=== PATIENT | female | born 1960 | race Caucasian/White ===

== ENCOUNTER → 2016-09-15 | Outpatient (CLI) | payer BC ==
[~2016-09-15] MED LIST: IOPAMIDOL (ISOVUE-300) 100 ML BTL IV ONE
== END ==
LOC: CIMAGING 11:25
PROVIDERS: ATTEND Physician Assistant
DX: K57.32 Diverticulitis of large intestine without perforation or abscess without bleeding (principal); K57.30 Diverticulosis of large intestine without perforation or abscess without bleeding; N83.201 Unspecified ovarian cyst, right side
CPT/HCPCS: 74177-PO; Q9967